=== PATIENT | female | born 1940 | race Caucasian/White ===

== ENCOUNTER 2023-06-11 12:39 | Emergency (ER) | payer OTHER ==
[~2023-06-11] VITALS: Ht 162.6 cm; Wt 61.7 kg
[2023-06-11 12:42] VITALS: BP_SYST 183; PULSE 68; RESP 18; TEMP 97.6; O2SAT 97
[2023-06-11] MEDS ORDERED: cloNIDine HCL 0.2 MG TABLET PO ONE (13:30)
[2023-06-11] MEDS ORDERED: ATOR20TA64 PO (13:37)
[2023-06-11] MEDS ORDERED: TRAM50TA2 PO (13:37)
[2023-06-11] MEDS ORDERED: HYDR25TA4 PO (13:37)
[2023-06-11] MEDS ORDERED: BENA20TA75 PO (13:37)
[2023-06-11] MEDS ORDERED: ALPR0.5T8 PO (13:37)
[2023-06-11] MEDS ORDERED: METO-542 PO (13:37)
[2023-06-11] MEDS ORDERED: BENA10TA PO (13:37)
[2023-06-11] MEDS: cloNIDine HCL 0.1 MG TABLET PO ONE (13:38)
[2023-06-11] MEDS: ACETAMINOPHEN 325 MG TABLET PO ONE (13:38)
[2023-06-11] MEDS ORDERED: CLON0.1T PO (15:12)
[2023-06-11 15:20] VITALS: BP_SYST 162; PULSE 62; RESP 18; TEMP 98.1; O2SAT 96
== END 2023-06-11 15:15 | disposition home or self-care (01) ==
LOC: SED 12:39
DX: I10 Essential (primary) hypertension (principal); Z79.899 Other long term (current) drug therapy
CPT/HCPCS: 70450-TC; 93005; 99284

== ENCOUNTER 2023-07-09 08:56 | Inpatient (IN) | payer OTHER ==
[~2023-07-09] VITALS: Ht 162.6 cm; Wt 64.9 kg
[~2023-07-09 08:56] MED LIST: ALPR0.5T8 PO; ATOR20TA64 PO; BENA10TA PO; BENA20TA75 PO; CLON0.1T PO; HYDR25TA4 PO; METO-306 PO; TRAM50TA2 PO
[2023-07-09 08:58] VITALS: BP_SYST 156; PULSE 85; RESP 18; TEMP 98.3; O2SAT 98
[2023-07-09] MEDS ORDERED: iohexoL 350 mgI/mL, 100 ML INFUS..BTL IV ONE (09:07)
[2023-07-09 09:21] LABS: BASOPHILS # (AUTO) 0.1 K/uL (0.0-0.2); BASOPHILS % (AUTO) 0.8 % (0.0-2.0); EOSINOPHILS # (AUTO) 0.3 K/uL (0.0-0.4); EOSINOPHILS % (AUTO) 4.5 % (0.0-4.0); HEMATOCRIT 41.7 % (36-48); LYMPHOCYTES # (AUTO) 1.9 K/uL (1.0-5.5); LYMPHOCYTES % (AUTO) 25.2 % (20.5-51.5); MEAN CORPUSCULAR HEMOGLOBIN 30 pg (27-31); MEAN CORPUSCULAR HGB CONC 34 % (32-36); MEAN CORPUSCULAR VOLUME 90 fL (79.0-98.0); MONOCYTES # (AUTO) 0.6 K/uL (0.0-1.0); MONOCYTES % (AUTO) 8.3 % (1.7-9.3); NEUTROPHILS # (AUTO) 4.7 K/uL (1.8-7.7); NEUTROPHILS % (AUTO) 61.2 % (40.0-70.0); PLATELET COUNT (AUTO) 197 K/uL (130-430); RED BLOOD CELL COUNT(AUTO) 4.63 MIL/uL (4.2-6.2); RED CELL DISTRIBUTION WIDTH 14.4 % (9.0-15.0); WHITE BLOOD COUNT (AUTO) 7.7 K/uL (4.8-10.8)
[2023-07-09 09:35] LABS: ANION GAP 9 (5-15); CALCIUM 9.4 mg/dL (8.4-11.0); CARBON DIOXIDE 29 mmol/L (23-29); CHLORIDE 102 mmol/L (98-107); CREATININE 1.12 mg/dL (0.55-1.30); GLUCOSE 108 mg/dL (74-106); POTASSIUM 4.2 mmol/L (3.5-5.1); SODIUM SERUM 140 mmol/L (136-145); UREA NITROGEN, BLOOD 15 mg/dL (8-21)
[2023-07-09 09:42] LABS: ALANINE AMINOTRANSFERASE 34 U/L (12-78); ALBUMIN 3.4 g/dL (3.4-4.8); ASPARTATE AMINOTRANSFERASE 32 U/L (10-37); BILIRUBIN,DIRECT 0.2 mg/dL (0.0-0.3); TOTAL BILIRUBIN 0.6 mg/dL (0.0-1.0); TOTAL PROTEIN, SERUM 7.4 g/dL (6.4-8.3)
[2023-07-09 09:57] LABS: PROTHROMBIN TIME 10.3 SECS (9.5-12.5)
[2023-07-09] MEDS: ASPIRIN 81 MG TABLET(ECOTRIN) PO ONE (11:05)
[2023-07-09] MEDS ORDERED: TRAM50TA2 PO (12:01)
[2023-07-09] MEDS ORDERED: BENA-6 PO (12:01)
[2023-07-09] MEDS ORDERED: BENA10TA73 PO (12:01)
[2023-07-09] MEDS ORDERED: HYDR25TA86 PO (12:01)
[2023-07-09] MEDS: cloNIDine HCL 0.1 MG TABLET PO PRN (12:07)
[2023-07-09] MEDS: NIFEdipine 30 MG TAB.ER.24 PO ONE (12:07)
[2023-07-09 12:12] VITALS: BP_SYST 197; PULSE 66; RESP 16; TEMP 98.7; O2SAT 97
[2023-07-09] MEDS: traMADol HCL HCL 50 MG TABLET (ULTRAM) PO PRN (15:04)
[2023-07-09] MEDS ORDERED: LIP20 PO (15:42)
[2023-07-09] MEDS ORDERED: ALPR0.5T8 PO (15:42)
[2023-07-09] MEDS ORDERED: METO50TA7 PO (15:42)
[2023-07-09 16:00] VITALS: BP_SYST 148; BP_SYST 158; PULSE 59; PULSE 62; RESP 16; TEMP 98; TEMP 98.3; O2SAT 95; O2SAT 96
[2023-07-09 20:02] VITALS: BP_SYST 135; PULSE 60; RESP 17; TEMP 98; O2SAT 96
[2023-07-09 20:07] VITALS: BP_SYST 140; PULSE 72; RESP 19; TEMP 98; O2SAT 95
[2023-07-10 00:03] VITALS: BP_SYST 130; PULSE 70; RESP 16; TEMP 98; O2SAT 97
[2023-07-10 00:20] VITALS: BP_SYST 140; PULSE 67; RESP 15; TEMP 97.6
[2023-07-10 08:00] VITALS: BP_SYST 151; PULSE 68; RESP 16; TEMP 98.3; O2SAT 92
[2023-07-10] MEDS: NIFEdipine 30 MG TAB.ER.24 PO SCH (09:19)
[2023-07-10] MEDS ORDERED: NIFE-34 PO (10:44)
[2023-07-10 12:00] VITALS: BP_SYST 134; PULSE 84; RESP 16; TEMP 98.4; O2SAT 96
[2023-07-10 12:45] VITALS: BP_SYST 134; PULSE 84; RESP 16; TEMP 98.4; O2SAT 96
[2023-07-10] MEDS ORDERED: METOPROLOL TARTRATE 25 MG TABLET PO SCH (21:00)
== END 2023-07-10 13:30 | disposition home or self-care (01) | DRG 305 ==
LOC: SED 08:56 → SMU 10:34 → STU 11:23
PROVIDERS: ADMIT Specialist; ATTEND Specialist
DX: I16.0 Hypertensive urgency (principal); R20.0 Anesthesia of skin; I10 Essential (primary) hypertension; G62.9 Polyneuropathy, unspecified; E78.5 Hyperlipidemia, unspecified; Z79.899 Other long term (current) drug therapy
CPT/HCPCS: 36415; 70450-TC; 70496; 70498; 70551; 71045; 72141; 80048; 80076; 82948; 84484; 85025; 85610; 85730; 93005; 99285; G0378; Q9967